=== PATIENT | female | born 1995 | race Two or more races ===

== ENCOUNTER 2024-10-30 05:12 | Emergency (ER) | payer BC ==
[~2024-10-30] VITALS: Ht 162.6 cm; Wt 100.0 kg
[2024-10-30 05:36] VITALS: BP 132/75; PULSE 108; RESP 18; TEMP 99.1; O2SAT 99
[2024-10-30] MEDS: IBUPROFEN 600 MG TABLET PO ONE (06:34)
[2024-10-30] MEDS: OXYMETAZOLINE HCL 0.05% 15 ML NASAL SPRAY NASAL ONE (06:35)
[2024-10-30] MEDS: AMOXICILLIN TRIHYDRATE 250 MG CAPSULE PO ONE (06:35)
[2024-10-30] MEDS: NEOMYCIN/POLYMYXIN B/HYDROCORT 10 ML OTIC SUSPENSION AD ONE (06:35)
[2024-10-30 06:48] LABS: COVID AG,FIA SOURCE NASAL SWAB
[2024-10-30] MEDS ORDERED: AMOX500C2 PO (07:18)
[2024-10-30 07:22] LABS: RAPID GROUP A STREP NEGATIVE (NEGATIVE)
[2024-10-30 07:25] LABS: INFLUENZA TYPE A NEGATIVE FOR TYPE A (NEGATIVE)
[2024-10-30 07:27] LABS: SARS-COV2 (COVID) ANTIGEN,FIA Negative (Negative)
[2024-10-30 07:28] LABS: INFLUENZA TYPE B POSITIVE FOR TYPE B (NEGATIVE)
[2024-10-30] MEDS ORDERED: OSEL75CA45 PO (07:39)
== END 2024-10-30 08:02 | disposition home or self-care (01) ==
LOC: EMS 05:12
DX: J10.83 Influenza due to other identified influenza virus with otitis media (principal); H66.91 Otitis media, unspecified, right ear; J10.1 Influenza due to other identified influenza virus with other respiratory manifestations; Z20.822 Contact with and (suspected) exposure to COVID-19
CPT/HCPCS: 84703; 87430; 87804; 99284; Z7502; Z7610